=== PATIENT | male | born 2000 | race Caucasian/White ===

== ENCOUNTER 2020-10-24 15:47 | Day surgery (SDC) | payer OTHER, SELFPAY ==
[2020-10-24] VITALS (9 sets, daily range): BP systolic 102–141; BP diastolic 44–78; PULSE 54–99; RESP 16–18; TEMP 36.5–36.6; O2SAT 97–100
--- NOTE | ~2020-10-24 | CT_ITS ---
EXAMINATION: CT abdomen pelvis w con DATE: 10/24/2020 17:14 INDICATION: Right lower quadrant abdominal pain. Leukocytosis. TECHNIQUE: Computed tomography (CT) of the abdomen and pelvis was performed with 100 cc Omnipaque 350 intravenous contrast. The dose-length product was 469.40 mGy-cm. Automated exposure control and iter ative reconstruction technique were employed. COMPARISON: None. FINDINGS: Lung bases are unremarkable. Heart size normal. No pleural or pericardial effusion. Small h iatal hernia. No significant vascular abnormality. No lymphadenopathy. There is acute uncomplicated appendicitis. Appendix measures 13 mm transversely with surrounding arnel appendiceal inflammation. No evidence for perforation or abscess. Small amount of free fluid in the p wilfredo. Nonobstructive bowel gas pattern. The liver, spleen, pancreas, adrenal glands, and kidneys are unremarkable. Gallbladder is present. No acute osseous abnormality. IMPRESSION: 1. Acute uncomplicated appendicitis. Reviewed, dictated and finalized at location A.
[2020-10-24 15:57] LABS: Basophils Absolute Auto 0.1 K/mm3 (0.0-0.1); Basophils Percent Auto 0.4 % (0.2-1.2); Eosinophils Absolute Auto 0.2 K/mm3 (0-0.3); Eosinophils Percent Auto 1.4 % (0-4.4); Hematocrit 49.9 % (42.0-52.0); Hemoglobin 17.1 g/dL (14.0-18.0); Immature Granulocyte Absolute 0.05 K/mm3 (0.00-0.031); Immature Granulocyte Percent A 0.3 % (0-0.5); Lymphocytes Absolute Auto 1.84 K/mm3 (0.9-3.2); Lymphocytes Percent Auto 11.3 % (18.3-44.2); Mean Corpuscular HGB Conc 34.3 g/dl (32-36); Mean Corpuscular Hemoglobin 30.2 pg (26-34); Mean Platelet Volume 9.2 fl (7.4-10.4); Monocytes Absolute Auto 1.9 K/mm3 (0.1-0.6); Monocytes Percent Auto 11.7 % (2.6-8.5); Neutrophils Absolute Auto 12.3 K/mm3 (1.3-6.7); Neutrophils Percent Auto 74.9 % (45.5-73.1); Platelet Count Result 315 k/mm3 (150-375); Red Blood Count 5.67 M/mm3 (4.6-6.20); Red Cell Distribution Width 12.3 % (11.5-14.5); White Blood Count 16.4 K/mm3 (4.5-10.0)
[2020-10-24 16:08] LABS: Alanine Aminotransferase 11 U/L (4-50); Albumin Level 4.9 g/dL (3.5-5.1); Alkaline Phosphatase 103 U/L (38-126); Anion Gap 9 mmol/L (8-16); Aspartate Amino Transferase 24 U/L (17-59); Bilirubin,Total 0.9 mg/dL (0.2-1.3); Blood Urea Nitrogen 12 mg/dL (9-20); Calcium 9.3 mg/dL (8.4-10.2); Carbon Dioxide 30 mmol/L (22-30); Chloride 101 mmol/L (98-107); Estimated CRCL calculation 104 ml/min; Estimated Glomerular Filt Rate > 60; Glucose 99 mg/dL (75-110); Lipase 27 U/L (23-300); Potassium 4.7 mmol/L (3.4-5.0); Sodium 140 mmol/L (137-145)
[2020-10-24 16:20] LABS: Add Urine Microscopic? YES; Appearance Urine Clear (Clear); Bilirubin Urine Negative (Negative); Blood Urine Negative (Negative); Color Urine Yellow (Yellow); Glucose Urine UA Negative (Negative); Ketones Urine Trace mg/dL (Negative); Leukocyte Esterase Ur Negative LEU/UL (Negative); Nitrate Urine Negative (Negative); Protein Urine Negative (Negative); RBC Urine 0-2 /hpf (0-2); Specific Grav Ur 1.017 (1.001-1.035); Urobilinogen Urine Negative mg/dL (<2.0); WBC Urine 0-3 /hpf
--- NOTE | 2020-10-24 16:46 | ED.ABDPAIN ---
HPI - Abdominal Pain General Chief Complaint: Abdominal Pain <CY Garcia Last Filed: 10/24/20 18:04> Stated Complaint: abd pain <Mayela Euceda PA-C - Last Filed: 10/24/20 18:04> Time Seen by Provider: 10/24/20 16:42 <CY Garcia Last Filed: 10/24/20 18:04> Source: patient <CY Garcia Last Filed: 10/24/20 18:04> Mode of arrival: ambulatory <CY Garcia Last Filed: 10/24/20 18:04> Limitations: no limitations <CY Garcia Last Filed: 10/24/20 18:04> History of Present Illness HPI narrative: This is a 20 year old male that presents to the ER for RLQ abdominal pain since yesterday. Reports constant dull, aching pain. Associated with some nausea and anorexia. Denies fever, vomiting, dysuria or hematuria. <YC Garcia Last Filed: 10/24/20 18:04> Related Data Home Medications: Home Medications Medication Instructions Recorded Confirmed No Home Medications 10/24/20 10/24/20 <CY Garcia Last Filed: 10/24/20 18:04> Allergies/Adverse Reactions: Allergies Allergy/AdvReac Type Severity Reaction Status Date / Time No Known Allergies Allergy Verified 10/24/20 17:41 <CY Garcia Last Filed: 10/24/20 18:04> Review of Systems Review of Systems: Narrative: CONSTITUTIONAL: Denies fever GASTROINTESTINAL: Reports abdominal pain, nausea. Denies vomiting, or diarrhea. GENITOURINARY: Denies dysuria or hematuria. <CY Garcia Last Filed: 10/24/20 18:04> All systems reviewed & are unremarkable except as noted in HPI and below <CY Garcia Last Filed: 10/24/20 18:04> [facility] Past Medical History Medical History: Medical History (Updated 10/24/20 @ 17:48 by Mayela Euceda PA-C) No active medical problems <Mayela Euceda PA-C - Last Filed: 10/24/20 18:04> Social History Social History: Social History (Updated 10/24/20 @ 16:48 by Mayela Euceda PA-C) Second hand tobacco smoke exposure: No Substance use: never <Mayela Euceda PA-C - Last Filed: 10/24/20 18:04> Exam Narrative: Exam Narrative: GENERAL: Well-appearing, well-nourished, and in no acute distress. HEAD: Normocephalic, atraumatic. EYES: EOMI. CHEST: Clear to auscultation. No respiratory distress. No wheezes rales or rhonchi HEART: Regular rate and rhythm. No murmur heard. Normal peripheral pulses. ABDOMEN: Soft, nondistended, normal active bowel sounds. Tender to palpation in the right lower quadrant EXTREMITIES: Normal range of motion. No edema. SKIN: Warm, dry, no rash. NEURO: No focal deficits. Alert and oriented x3. PSYCH: Normal mood and affect <Mayela Euceda PA-C - Last Filed: 10/24/20 18:04> Course NEEDLEMAKER/PA Physician Supervision For this patient encounter, I reviewed the NEEDLEMAKER or PA documentation, treatment plan, and medical decision making; and I had [id number] time with this patient. Patient complains of abdominal pain, exam reveals tenderness. Plan surgical consult for appendicitis. <Krysten Powers MD - Last Filed: 10/24/20 18:12> Consultations Consultation #1: Spoke with Dr. Higuera about patient and work-up, will come down to the ED to evaluate patient. Patient will likely go to the OR soon <Mayela Euceda PA-C - Last Filed: 10/24/20 18:04> Date: 10/24/20 <Mayela Euceda PA-C - Last Filed: 10/24/20 18:04> Time: 18:04 <Mayela Euceda PA-C - Last Filed: 10/24/20 18:04> Vital Signs Vital signs: Vital Signs Temperature 36.5 C 10/24/20 15:50 Pulse Rate 99 10/24/20 15:50 Respiratory Rate 16 04/20/21 15:50 Blood Pressure 130/78 10/24/20 15:50 Pulse Oximetry 97 10/24/20 15:50 Temperature 36.5 C 10/24/20 15:50 Pulse Rate 78 10/24/20 17:23 Respiratory Rate 16 10/24/20 17:23 Blood Pressure 118/75 10/24/20 17:23 Pulse Oximetry 100 10/24/20 17:23 <CY Garcia Las
--- NOTE | 2020-10-24 17:27 | PC.NURSE ---
WONG arango at bedside for results.
--- NOTE | 2020-10-24 17:50 | PC.NURSE ---
Surgeon at bedside.
--- NOTE | 2020-10-24 18:18 | PM.IMHP ---
H&P: HPI History of Present Illness Date/Time: 10/24/20 18:18 Chief Complaint: Right lower quadrant abdominal pain Narrative: This is a 20 year old white male that presents to the ER for RLQ abdominal pain since yesterday. Reports constant dull, aching pain. Associated with some nausea and anorexia. Denies fever, vomiting, dysuria or hematuria. Patient states the pain started the morning when he woke up yesterday. Was not associated with food. He typically does any breakfast so did yesterday. He had half of chicken sandwich yesterday at lunch and then later in the day had nausea. When he woke up this morning he still had abdominal pain but was more in the right lower quadrant so after talking to his mother they presented to the ER after checking on his symptoms at a nursing care which suggested possible appendicitis. ER workup included CBC which showed elevated white count and a CT scan which confirmed acute appendicitis. There are no fecaliths but after thorough discussion mother and patient are more in favor of surgical intervention rather than watchful waiting and antibiotic therapy which is successful about 70% of the time period after checking with the OR anesthesia where planning to proceed with a laparoscopic appendectomy possible open. Review of Systems Constitutional: Constitutional: Reports no additional constitutional complaints and Denies frequent falls Eyes: Eyes: Reports as per HPI ENT: Reports Normal hearing present, Denies dizziness and Reports other (Mucous membranes moist.) Cardiovascular: Cardiovascular: Denies chest pain, Denies palpitations, Denies dyspnea and Denies dyspnea on exertion Respiratory: Respiratory: Denies hemoptysis, Denies dyspnea, Denies dyspnea on exertion and Denies wheezing Gastrointestinal: Gastrointestinal: Reports abdominal pain (Abdominal pain started Friday morning. ) Comments: Pain for the 1st 12 hours was all over the abdomen now in the right lower quadrant. Genitourinary: Genitourinary: Denies hematuria, Denies nocturia and Denies urinary frequency Musculoskeletal: Musculoskeletal: Denies deformity and Reports other ( no clubbing,cyanosis, or edema) Integumentary/Breasts: Skin/Breast: Denies new lesions, Denies rash and Denies unusual bruising Neurologic: Reports Normal hearing present, Denies dizziness, Denies frequent falls, Denies memory loss and Denies seizure-like activity Psychiatric: Psychiatric: Denies memory loss and Reports other ( normal mood and mental status) Endocrine: Endocrine: Denies cold intolerance and Denies palpitations Hematologic/Lymphatic: Hematologic/Lymphatic: Denies easy bleeding and Denies easy bruising Allergic/Immunologic: Allergic/Immunologic: Denies wheezing and Reports other ( no lymphadenopathy) [facility] Past Medical History Medical History No active medical problems Social History Social History Second hand tobacco smoke exposure: No Substance use: never Meds Home Medications and Allergies Home Medications Medication Instructions Recorded Confirmed Type No Home Medications 10/24/20 10/24/20 History Allergies Allergy/AdvReac Type Severity Reaction Status Date / Time No Known Allergies Allergy Verified 10/24/20 17:41 Vital Signs Vital Signs - 24 hr 10/24/20 15:50 10/24/20 17:23 Temperature 36.5 C Pulse Rate 99 78 Respiratory Rate 16 16 Blood Pressure 130/78 118/75 Pulse Oximetry 97 100 Exam Const: General: cooperative, no acute distress, well developed, alert and awake Nutritional Appearance: well nourished Orientation/consciousness: patient oriented x3 Limitations: no limitations HENMT: Head: normal to inspection, normocephalic and atraumatic Ears: hearing grossly normal bilaterally General nose exam: Normal external nose present Face and sinus: normal facial exam Mouth: Yes Normal oral and
--- NOTE | 2020-10-24 18:34 | WPDHPUPDATE1 ---
History and Physical Update Update Date/Time: 10/24/20 18:34 History and Physical has been reviewed, including an updated exam of the patient. There are no changes in the patient's condition. Patient states that the last time he has something to eat or drink was about 2 hours ago when he had some sips of water. He has had nothing to eat all day today. Risks, benefits, and alternatives of a laparoscopic appendectomy possible open have been described and they seem to understand wished to proceed. Have been discussed and questions answered. Patient agrees to proceed with procedure.
--- NOTE | 2020-10-24 18:38 | WPDANESEPP ---
Anes - Eval Pre Procedure Procedure: Operation Date: 10/24/20 18:45 Proposed Procedures p Laparoscopic Appendectomy - Marck Higuera MD Date/Time: 10/24/20 18:38 Pre Op Diagnosis: abd pain Patient Data Age: 20 Gender: M Height: 1.83 m Weight: 81.6 kg Last Vital Signs Temp 36.5 C 10/24/20 15:50 Pulse 78 10/24/20 17:23 Resp 16 10/24/20 17:23 BP 118/75 10/24/20 17:23 Pulse Ox 100 10/24/20 17:23 Allergies Allergy/AdvReac Type Severity Reaction Status Date / Time No Known Allergies Allergy Verified 10/24/20 17:41 Home Medications Medication Instructions Recorded Confirmed Type No Home Medications 10/24/20 10/24/20 History Laboratory Tests 10/24/20 10/24/20 10/24/20 15:52 15:52 16:09 WBC 16.4 K/mm3 H K/mm3 (4.5-10.0) RBC 5.67 M/mm3 M/mm3 (4.6-6.20) Hgb 17.1 g/dL g/dL (14.0-18.0) Hct 49.9 % % (42.0-52.0) MCV 88.0 fl fl (80-100) MCH 30.2 pg pg (26-34) MCHC 34.3 g/dl g/dl (32-36) RDW 12.3 % % (11.5-14.5) Plt Count 315 k/mm3 k/mm3 (150-375) MPV 9.2 fl fl (7.4-10.4) Immature Gran % (Auto) 0.3 % % (0-0.5) Neut % (Auto) 74.9 % H % (45.5-73.1) Lymph % (Auto) 11.3 % L % (18.3-44.2) [place] % (Auto) 11.7 % H % (2.6-8.5) Eos % (Auto) 1.4 % % (0-4.4) Baso % (Auto) 0.4 % % (0.2-1.2) Lymph # (Auto) 1.84 K/mm3 K/mm3 (0.9-3.2) [place] # (Auto) 1.9 K/mm3 H K/mm3 (0.1-0.6) Eos # (Auto) 0.2 K/mm3 K/mm3 (0-0.3) Baso # (Auto) 0.1 K/mm3 K/mm3 (0.0-0.1) Abs Immat Gran (auto) 0.05 K/mm3 H K/mm3 (0.00-0.031) Absolute Neuts (auto) 12.3 K/mm3 H K/mm3 (1.3-6.7) Absolute Nucleated RBC 0.0 K/mm3 K/mm3 (0.0-0.012) Nucleated RBC % 0.0 % % (0.0-0.2) Sodium 140 mmol/L mmol/L (137-145) Potassium 4.7 mmol/L mmol/L (3.4-5.0) Chloride 101 mmol/L mmol/L (98-107) Carbon Dioxide 30 mmol/L mmol/L (22-30) Anion Gap 9 mmol/L mmol/L (8-16) BUN 12 mg/dL mg/dL (9-20) Creatinine 1.10 mg/dL mg/dL (0.7-1.3) Estim Creat Clear Calc 104 ml/min ml/min Estimated GFR > 60 (59 - ) Glucose 99 mg/dL mg/dL (75-110) Calcium 9.3 mg/dL mg/dL (8.4-10.2) Total Bilirubin 0.9 mg/dL mg/dL (0.2-1.3) AST 24 U/L U/L (17-59) ALT 11 U/L U/L (4-50) Alkaline Phosphatase 103 U/L U/L (38-126) Total Protein 9.0 g/dL H g/dL (6.3-8.2) Albumin 4.9 g/dL g/dL (3.5-5.1) Lipase 27 U/L U/L (23-300) Urine Color Yellow (Yellow) Urine Appearance Clear (Clear) Urine pH 7.0 (5.0-9.0) Ur Specific Angelica 1.017 (1.001-1.035) Urine Protein Negative mg/dL mg/dL (Negative) Urine Glucose (UA) Negative mg/dL mg/dL (Negative) Urine Ketones Trace mg/dL mg/dL (Negative) Ur Blood (Man) Negative (Negative) Urine Nitrate Negative (Negative) Urine Bilirubin Negative (Negative) Urine Urobilinogen Negative mg/dL mg/dL (<2.0) Leukocyte Esterase Rfl Negative CAMPBELL/UL CAMPBELL/UL (Negative) Urine RBC 0-2 /hpf /hpf (0-2) Urine WBC 0-3 /hpf /hpf Patient hx anesthesia problems: none Family hx anesthesia problems: none PMFSH Past Medical History Medical History No active medical problems Social History Social History Second hand tobacco smoke exposure: No Substance use: never Exam Day of Procedure 10/24/20 18:38
[2020-10-24] MEDS: LACTATED RINGERS 1,000 ML 30 ML IV CONT ×2 (18:45→21:08)
[2020-10-24] MEDS: BUPIVACAINE/EPINEPHRINE 0.5% 30 ML VIAL INFILTRATE (19:18)
--- NOTE | 2020-10-24 19:38 | P.PNAN_ITS ---
Anes - Eval Final PreProcedure Day of Procedure 10/24/20 19:38 Patient weight: normal Heart: regular rate and rhythm Lungs: clear to auscultation Airway: Mallampati scale class II Neurological: alert and oriented Last oral intake: >/= 8 hours ASA classification: I Emergent: yes Anesthetic plan: proceed Anesthesia type and monitoring: general ETT and standard monitoring Informed Consent: The patient's anesthetic plan and its attendant risks and be nefits were discussed with the patient/family/POA. Questions were solicited and answers provided to the satisfaction of the patient/family/POA.
--- NOTE | 2020-10-24 20:24 | SUR.OPER ---
EBL 10ML
--- NOTE | 2020-10-24 20:27 | PM.PROC ---
Procedure Note - Detailed Date of procedure: 10/24/20 Pre-op diagnosis: abd pain Acute uncomplicated appendicitis Post-op diagnosis: same Procedure performed: Laparoscopic Appendectomy Description of procedure: The patient was seen again in the Holding Room. The risks, benefits, complications, treatment options, and expected outcomes were discussed with the patient and/or family. The possibilities of reaction to medication, pulmonary aspiration, perforation of viscus, bleeding, recurrent infection, finding a normal appendix, the need for additional procedures, failure to diagnose a condition, and creating a complication requiring transfusion or operation were discussed. There was concurrence with the proposed plan and informed consent was obtained. The site of surgery was properly noted/marked. The patient was taken to Operating Room, and a time out was preformed which identified this as the proper patient, and the procedure verified as laparoscopic appendectomy, possible open. The patient was placed in the supine position and general anesthesia was induced, along with placement of orogastric tube, SCD hose, and a Alejandre catheter. The abdomen was prepped and draped in a sterile fashion. A 5 mm umbilical incision was made and the peritoneal cavity was accessed using the Veress needle technique. Once the abdomen was insufflated to 14 mmHg pressure a 5 mm XL trocar over the 0? 5 mm scope was carefully twisted into the abdomen via the umbilicus. The pneumoperitoneum was then established to steady pressure of 14 mm Hg. A 12 mm laparoscopic port was placed through a transverse suprapubic incision. An additional 5 mm cannula was then placed in the left lower quadrant of the abdomen at a level half way between the umbilicus and pubic symphysis under direct vision. A careful evaluation of the entire abdomen was carried out. The patient was placed in Trendelenburg and left lateral decubitus position. The small intestines were retracted in the cephalad and left lateral direction away from the pelvis and right lower quadrant. Appended the omentum was completely covering the appendix and densely adherent to it. This was dissected off of the appendix and then the appendix could be twisted around with the tip facing inferiorly. This exposed a very short mesoappendix to us in a thought that I could placed just the single 45 mm 3.5 stapler across it. The patient was found to have an enlarged and inflamed appendix that was extending into the right side of the junction between the abdomen and pelvis on the right side. It was somewhat adherent to the right lateral abdominal wall also.. There was no evidence of perforation. The appendix was carefully dissected. I placed the blue load across the fat pad of the ileocecal junction and completely across the what appeared to be the base of the appendix. The appendix was then divided at what appeared to be its base using the this 45 mm stapler with a 3.5 mm bowel wall load. The appendix was then placed in an endobag which had been brought through the 12 mm suprapubic port site. The appendix and the bag were then extracted through this larger port site in the suprapubic position. I then carefully inspected the staple line and it appeared that there may still be about 2 cm of appendix present. I carefully dissected between the staple line and the base of the appendix and then used cautery between the staple line which was on the fat pad of the ileum and the remaining tip of the amputated appendix from that. Then I was able to grab the this tip and elevate it so that we could then place another 45 mm endo GI stapler across what appeared to be the actual base of the appendix right where it joined the cecum. This was then fired and about 2 cm more of the appendix was excised with a new staple line right on the cecum. This piece of appendix was grasped with a 10 mm grasper brought up into the lumen of the port and the entire port
[2020-10-24] MEDS: oxyCODONE HCL (*CRX) 5 MG TAB IR PO (22:00)
== END 2020-10-24 22:30 | disposition home or self-care (01) ==
LOC: ANHED 17:48 → ANHSURGERY 20:29
PROVIDERS: Emergency Medicine; Emergency Provider Emergency Medicine; PCP Pediatrics; Visit Provider Surgery
PROC: 0DTJ4ZZ Resection of Appendix, Percutaneous Endoscopic Approach (ICD-10-PCS; CPT 44970; principal; 2020-10-24 18:45)
DX: K35.30 Acute appendicitis with localized peritonitis, without perforation or gangrene (principal); K38.2 Diverticulum of appendix
CPT/HCPCS: 44970; 36415; 74177; 80053; 81001; 83690; 85025; 88304; 96365; 99285; A9270; J0330; J1100; J2250; J2405; J2543; J2704; J2710; J3010; J7120; Q9967

== ENCOUNTER 2022-10-01 20:01 | Emergency (ER) | payer SELFPAY | END 2022-10-01 20:46 | disposition left against medical advice (07) | PROVIDERS: PCP Pediatrics | DX: Z53.21 Procedure and treatment not carried out due to patient leaving prior to being seen by health care provider (principal) | CPT/HCPCS: 99199 ==